=== PATIENT | female | born 1945 | race Caucasian/White ===

== ENCOUNTER 2016-05-01 11:03 | Outpatient (CLI) | payer MEDICARE, OTHER ==
[2014-11-12 12:23] VITALS: BP 172/90
--- NOTE | 2016-05-04 12:37 | OP Clinic Progress Note ---
REFERRING PHYSICIAN: Dr. Elbert Banks REASON FOR VISIT: Iman Lala returns for follow up on her seronegative rheumatoid arthritis of multiple joints. She is doing well. No joint swelling, warmth, tenderness, morning stiffness or pain. No new deformities or associated symptoms. PAST MEDICAL HISTORY: 1. Hypothyroidism. 2. Hypertension. 3. Diverticulitis. PRESENT MEDICATIONS: 1. Metoprolol 50 mg once a day. 2. Levothyroxine 50 mcg daily. 3. Plaquenil 200 mg once a day. 4. Leflunomide 20 mg daily. REVIEW OF SYSTEMS: No fevers, chills, sweats, chest pain, shortness of breath, cough, wheezing, nausea, vomiting, or diarrhea. No numbness or tingling of extremities, skin rashes, or nodules. PHYSICAL EXAMINATION: GENERAL: On exam, she looks well. VITAL SIGNS: BP: 140/80, R: 18, heart rate 88, T: 97.5. Height: 4 feet 11 inches. Weight: 153 pounds. HEENT: Sclerae are anicteric. Conjunctivae are pink. No stomatitis or glossitis. LUNGS: Clear bilaterally with no crackles or wheezing. HEART: Regular rhythm. ABDOMEN: Soft and nontender. VASCULAR: No edema or cyanosis. PERIPHERAL JOINTS: No synovitis at the DIPs, PIPs, MCPs, wrists, elbows, shoulders, hips, knees, ankles, and feet with good range of motion throughout. Note, she does have ulnar deviation at the MCPs. She does have a little thoracic kyphosis but no spinal tenderness. IMPRESSION: Seronegative rheumatoid arthritis, active and stable. PLAN: Continue her regimen. Her last labs from February are reviewed. Her rheumatoid factor was negative. Sedimentation rate was normal. CBC and CMP were unremarkable. We will recheck a CBC and CMP to monitor for drug toxicity. She also needs a fasting lipid profile when she comes back next week for all of her studies. Thank you very much. cc: Dr. Elbert CRAIG
== END 2016-05-01 11:04 ==
LOC: RHEU 11:03
PROVIDERS: ATTEND Internal Medicine
DX: M06.09 Rheumatoid arthritis without rheumatoid factor, multiple sites (principal); Z79.899 Other long term (current) drug therapy
CPT/HCPCS: 99214; G0463

== ENCOUNTER 2016-05-07 09:58 | Outpatient (CLI) | payer MEDICARE, OTHER ==
[2014-11-12 12:23] VITALS: BP 172/90
[2016-05-07 10:20] LABS: BASOPHILS % 0.7 (0.0-1.5); EOSINOPHILS % 3.2 % (0.0-6.8); LYMPHOCYTES # 1.2 # k/uL (0.6-4.0); MEAN CORPUSCULAR HEMOGLOBIN 26.3 pg (28.0-34.0); MONOCYTES # 0.3 # k/uL (0.0-0.9); MONOCYTES % 6.7 % (0.0-11.0); NEUTROPHILS # 2.7 # k/uL (1.4-7.7)
[2016-05-07 10:43] LABS: eGFR (African) > 60; eGFR (Non-African) > 60
== END 2016-05-07 10:00 ==
LOC: LAB 09:58
PROVIDERS: ATTEND Internal Medicine
DX: Z51.81 Encounter for therapeutic drug level monitoring (principal); Z79.899 Other long term (current) drug therapy; M05.79 Rheumatoid arthritis with rheumatoid factor of multiple sites without organ or systems involvement
CPT/HCPCS: 36415; 80053; 80061; 85025; 85651; 86140

== ENCOUNTER 2016-07-31 09:40 | Outpatient (CLI) | payer MEDICARE, OTHER ==
[2014-11-12 12:23] VITALS: BP 172/90
--- NOTE | 2016-08-03 13:15 | OP Clinic Progress Note ---
REASON FOR VISIT: Iman Lala returns for follow up of seronegative rheumatoid arthritis of multiple sites. She is doing well on her present regimen. No joint swelling, warmth, tenderness, morning stiffness or pain. No new deformities and activities of daily living are not limited. PAST MEDICAL HISTORY: 1. Hypothyroidism. 2. Hypertension. 3. Diverticulitis. PRESENT MEDICATIONS: 1. Plaquenil 200 mg once a day. 2. Levothyroxine 50 mcg daily. 3. Metoprolol 50 mg once a day. 4. Leflunomide 20 mg once a day. REVIEW OF SYSTEMS: No fevers, chills, sweats, chest pain, shortness of breath, cough, wheezing, nausea, vomiting, numbness or tingling of extremities. No falls. PHYSICAL EXAMINATION: GENERAL: She looks well. VITAL SIGNS: Height: 4 feet 11 inches. Weight: 157. T: 97.6, R: 18, heart rate of 90, BP: 150/90. HEENT: Sclerae are anicteric. Conjunctivae are pink. No stomatitis or glossitis. LUNGS: Clear bilaterally with no crackles or wheezing. HEART: Regular rhythm. ABDOMEN: Soft and nontender. VASCULAR: No edema or cyanosis. PERIPHERAL JOINTS: No synovitis at the DIPs, PIPs, MCPs, wrists, elbows, shoulders, hips, knees, ankles, and feet. LABORATORY STUDIES: Her labs from May 07, sedimentation rate was 26. Hemoglobin 11.7. Liver functions, AST and ALT are normal at 26 and 25. Note mild hypertriglyceridemia at 271. IMPRESSION AND PLAN: 1. Rheumatoid arthritis, active and stable. 2. High risk drug. No evidence of drug toxicity; however, we will monitor triglycerides while on leflunomide. 3. Hypertriglyceridemia. 4. Anemia, felt to be of chronic disease. Continue to monitor. Thank you very much. Best regards, cc: Dr. Elbert CRAIG
== END 2016-07-31 13:48 ==
LOC: RHEU 09:40
PROVIDERS: ATTEND Internal Medicine
DX: M06.9 Rheumatoid arthritis, unspecified (principal); Z79.899 Other long term (current) drug therapy
CPT/HCPCS: G0463

== ENCOUNTER 2016-08-05 13:30 | Outpatient (CLI) | payer MEDICARE, OTHER ==
[2014-11-12 12:23] VITALS: BP 172/90
[2016-08-05 13:53] LABS: BASOPHILS % 0.8 (0.0-1.5); EOSINOPHILS % 3.7 % (0.0-6.8); MEAN CORPUSCULAR HEMOGLOBIN 24.2 pg (28.0-34.0); MEAN CORPUSCULAR VOLUME 80.4 fl (80.0-100.0); MONOCYTES % 7.1 % (0.0-11.0); NEUTROPHILS # 3.4 # k/uL (1.4-7.7)
[2016-08-05 14:20] LABS: eGFR (African) > 60; eGFR (Non-African) > 60
== END 2016-08-05 13:40 ==
LOC: LAB 13:30
PROVIDERS: ATTEND Internal Medicine
DX: M06.09 Rheumatoid arthritis without rheumatoid factor, multiple sites (principal); Z79.899 Other long term (current) drug therapy
CPT/HCPCS: 36415; 80053; 85025; 85651; 86140

== ENCOUNTER 2016-10-30 09:28 | Outpatient (CLI) | payer MEDICARE, OTHER ==
[2014-11-12 12:23] VITALS: BP 172/90
--- NOTE | 2016-10-30 13:39 | OP Clinic Progress Note ---
REASON FOR VISIT: Iman Lala returns for follow up on her seronegative rheumatoid arthritis of multiple joints. Doing well. She is not having any joint swelling, warmth, tenderness, morning stiffness, or pain. No new deformities and no limitations. PAST MEDICAL HISTORY: 1. Hypothyroidism. 2. Hypertension. 3. Diverticulitis. PRESENT MEDICATIONS: 1. Plaquenil 200 mg once a day. 2. Levothyroxine 50 mcg daily. 3. Metoprolol 50 mg once a day. 4. Leflunomide 20 mg once a day. 5. Tramadol 50 mg 1 tablet twice a day. REVIEW OF SYSTEMS: No fevers, chills, sweats, chest pain, shortness of breath, cough, wheezing, nausea, or vomiting. No numbness or tingling of her extremities. No falls. She is due for a DEXA scan. She did have her eye exam last month and no well of Plaquenil toxicity. PHYSICAL EXAMINATION: GENERAL: On exam, she looks well. VITAL SIGNS: Height: 4 feet 11 inches. Weight: 153. T: 97.5, R: 18, heart rate of 70, BP: 170/80. HEENT: Sclerae are anicteric. Conjunctivae are pink. No stomatitis or glossitis. LUNGS: Clear with no crackles or wheezing. HEART: Regular rhythm. ABDOMEN: Soft and nontender. VASCULAR: No edema or cyanosis. PERIPHERAL JOINTS: No synovitis at the DIPs, PIPs, MCPs, wrists, elbows, shoulders, hips, knees, ankles, and feet. No thoracic kyphosis. No spinal pain. Cervical range of motion is normal. DIAGNOSTIC STUDIES: Her labs from August 05 were reviewed. Hemoglobin was 10.7. Sedimentation rate was 25. CMP was unremarkable. IMPRESSION: 1. Seropositive rheumatoid arthritis. 2. Anemia. We will recheck her labs today. Regarding her anemia, note that her hemoglobin in January of last year was 12.6 and in April it was 11.7, and recently it was 10.7. Consider further investigation. PLAN: Her last bone density was over 4 years ago. We will proceed with a DEXA scan for osteoporosis screening. Thank you very much. cc: Dr. Elbert CRAIG
== END 2016-10-30 09:30 ==
LOC: RHEU 09:28
PROVIDERS: ATTEND Internal Medicine
DX: M05.9 Rheumatoid arthritis with rheumatoid factor, unspecified (principal); D64.9 Anemia, unspecified
CPT/HCPCS: G0463

== ENCOUNTER 2016-11-03 13:17 | Outpatient (CLI) | payer MEDICARE, OTHER ==
[2014-11-12 12:23] VITALS: BP 172/90
[2016-11-03 13:46] LABS: BASOPHILS % 0.8 (0.0-1.5); EOSINOPHILS % 4.3 % (0.0-6.8); MEAN CORPUSCULAR HEMOGLOBIN 24.7 pg (28.0-34.0); MEAN CORPUSCULAR VOLUME 78.6 fl (80.0-100.0); MONOCYTES % 5.6 % (0.0-11.0); NEUTROPHILS # 3.9 # k/uL (1.4-7.7)
[2016-11-03 14:12] LABS: eGFR (African) > 60; eGFR (Non-African) > 60
== END 2016-11-03 13:18 ==
LOC: RAD 13:17
PROVIDERS: ATTEND Internal Medicine
DX: M06.09 Rheumatoid arthritis without rheumatoid factor, multiple sites (principal); Z79.899 Other long term (current) drug therapy
CPT/HCPCS: 36415; 80053; 85025; 85651; 86140

== ENCOUNTER 2016-11-18 13:12 | Outpatient (CLI) | payer MEDICARE, OTHER ==
[2014-11-12 12:23] VITALS: BP 172/90
== END 2016-11-18 13:13 ==
LOC: RAD 13:12
PROVIDERS: ATTEND Internal Medicine
DX: M06.09 Rheumatoid arthritis without rheumatoid factor, multiple sites (principal); Z79.899 Other long term (current) drug therapy
CPT/HCPCS: 77080

== ENCOUNTER 2016-11-19 08:42 | Outpatient (CLI) | payer MEDICARE, OTHER ==
[2014-11-12 12:23] VITALS: BP 172/90
== END 2016-11-19 08:44 ==
LOC: LAB 08:42
PROVIDERS: ATTEND Family Medicine
DX: D50.8 Other iron deficiency anemias (principal)
CPT/HCPCS: 36415; 83540

== ENCOUNTER 2017-02-03 13:33 | Outpatient (CLI) | payer MEDICARE, OTHER ==
[2014-11-12 12:23] VITALS: BP 172/90
[2017-02-03 13:48] LABS: BASOPHILS % 0.8 (0.0-1.5); EOSINOPHILS % 2.9 % (0.0-6.8); MEAN CORPUSCULAR HEMOGLOBIN 27.9 pg (28.0-34.0); MEAN CORPUSCULAR VOLUME 83.8 fl (80.0-100.0); MONOCYTES % 6.5 % (0.0-11.0); NEUTROPHILS # 3.9 # k/uL (1.4-7.7)
[2017-02-03 14:14] LABS: eGFR (African) > 60; eGFR (Non-African) > 60
== END 2017-02-03 13:34 ==
LOC: LAB 13:33
PROVIDERS: ATTEND Internal Medicine
DX: M06.09 Rheumatoid arthritis without rheumatoid factor, multiple sites (principal)
CPT/HCPCS: 36415; 80053; 85025; 85651; 86140

== ENCOUNTER 2017-04-28 14:34 | Outpatient (CLI) | payer MEDICARE, OTHER ==
[2014-11-12 12:23] VITALS: BP 172/90
--- NOTE | 2017-04-30 09:34 | OP Clinic Progress Note ---
REASON FOR VISIT: This 72-year-old lady is seen with "vertigo." She has had this for about 3 months. It began when she came back from a trip to [place]. Frequently, she has some popping and cracking in her ears on descent from airplanes. She does note that the issues regarding imbalance or disequilibrium began after returning from [place] by airplane. She tends to sleep on both the right and left sides and moves around. She flies about 3 times a year and this is the first time the disequilibrium or imbalance or vertigo has seemed to bother her, but she does have popping and cracking in her ears on descent frequently. Her ears get a little muffled. She opens her mouth and yawns, essentially stretching her tensor veli palatini muscle which can help to open up the Eustachian tubes. The patient is in excellent physical health in regard to exercising, running a 5K, and trying to take good care of herself. Both ear canals have a small amount of dry crusted cerumen that is not obstructive and that was removed from both ear canals under the microscope. Both eardrums are clear and clean. There is no perforation. There is no increased redness. However, the malleus of both eardrums are significantly medially retracted. She also has a tender neck more in the suboccipital area and more on the right side. Although her symptoms seem to come on associated with standing up and this may be a very slight change of blood pressure or loss of blood volume circulating to the head. I talked with her about stomping her feet before getting up or flexing her lower legs. In regard to the ears, there is at least a moderate chance that some degree of ear pressure problems in the middle ear cause some increased tension on the vestibular system. Occasionally, I have done a very small myringotomy in the clinic under the microscope and it has improved this. I went over these issues with her. The patient seems to be able to tolerate this very well. She simply wanted to know whether something was exceptionally wrong otologically. PLAN: I have reviewed these findings with her using diagrams and she accepts this. She feels comfortable with returning only a p.r.n. basis. cc: Dr. Elbert CRAIG
== END 2017-04-28 14:40 ==
LOC: ENT 14:34
PROVIDERS: ATTEND Otolaryngology
DX: H81.43 Vertigo of central origin, bilateral (principal)
CPT/HCPCS: G0463

== ENCOUNTER 2017-04-30 09:20 | Outpatient (CLI) | payer MEDICARE, OTHER ==
[2014-11-12 12:23] VITALS: BP 172/90
--- NOTE | 2017-05-05 10:16 | OP Clinic Progress Note ---
REASON FOR VISIT: Iman Lala returns for follow up on her seronegative rheumatoid arthritis. She is doing well. She has a little morning stiffness but not more than 15 minutes. No swelling. No new deformities. No limitations in activities of daily living. Her anemia has resolved. She continues to address her blood pressure with Dr. Banks. Osteopenia. PAST MEDICAL HISTORY: 1. Hypothyroidism. 2. Hypertension. 3. Diverticulitis. 4. Seronegative rheumatoid arthritis. 5. Osteopenia. Actonel treatment x5 years. PRESENT MEDICATIONS: 1. Leflunomide 20 mg daily. 2. Metoprolol 50 mg once a day. 3. Levothyroxine 100 mcg daily. 4. Plaquenil 200 mg once a day. 5. Tramadol 50 mg 1 to 2 tablets twice a day as needed. 6. Omeprazole. REVIEW OF SYSTEMS: Rest of the systems are reviewed. No fevers, chills, sweats, chest pain, shortness of breath, cough, wheezing, nausea, vomiting, or diarrhea. PHYSICAL EXAMINATION: General: She looks well. VITAL SIGNS: Height: 4 feet 10 inches. Weight: 139. T: 97.8, R: 20, heart rate 68, BP: 151/87. HEENT: Sclerae are anicteric. Conjunctivae are pink. No stomatitis or glossitis. LUNGS: Clear bilaterally with no crackles or wheezing. HEART: Regular rhythm. ABDOMEN: Soft and nontender. VASCULAR: No edema or cyanosis. PERIPHERAL JOINTS: Hard bony swelling at the DIPs, otherwise, the PIPs, MCPs, wrists, elbows, shoulders, hips, knees, ankles, and feet show no synovitis and good range of motion throughout. IMPRESSION: 1. Seronegative rheumatoid arthritis of multiple sites. Doing well. 2. Osteopenia, stable. 3. Iron deficiency anemia, resolved. Her last hemoglobin was on February 03 and it was 14.2, hematocrit 42.7. 4. Chronic pain, stable. PLAN: 1. Check labs today for disease activity and drug toxicity. 2. I refilled her tramadol 1 to 2 tablets twice a day as needed. Dispense # 120 tablets. 3. Note, we will repeat her DEXA scan sometime in 2019. 4. Continue calcium with vitamin D. Thank you very much. cc: Dr. Elbert CRAIG
== END 2017-04-30 13:26 ==
LOC: RHEU 09:20
PROVIDERS: ATTEND Internal Medicine
DX: M06.89 Other specified rheumatoid arthritis, multiple sites (principal); M85.80 Other specified disorders of bone density and structure, unspecified site; R52 Pain, unspecified
CPT/HCPCS: 99214; G0463

== ENCOUNTER 2017-05-04 13:16 | Outpatient (CLI) | payer MEDICARE, OTHER ==
[2014-11-12 12:23] VITALS: BP 172/90
[2017-05-04 13:33] LABS: BASOPHILS % 0.5 (0.0-1.5); EOSINOPHILS % 2.8 % (0.0-6.8); MEAN CORPUSCULAR HEMOGLOBIN 28.5 pg (28.0-34.0); MEAN CORPUSCULAR VOLUME 87.6 fl (80.0-100.0); MONOCYTES % 5.7 % (0.0-11.0)
[2017-05-04 14:06] LABS: eGFR (African) > 60; eGFR (Non-African) > 60
== END 2017-05-04 13:18 ==
LOC: LAB 13:16
PROVIDERS: ATTEND Internal Medicine
DX: M06.09 Rheumatoid arthritis without rheumatoid factor, multiple sites (principal); Z79.899 Other long term (current) drug therapy
CPT/HCPCS: 36415; 80053; 85025; 85651

== ENCOUNTER 2017-07-30 09:19 | Outpatient (CLI) | payer MEDICARE, OTHER ==
[2014-11-12 12:23] VITALS: BP 172/90
--- NOTE | 2017-07-30 10:41 | OP Clinic Progress Note ---
REASON FOR VISIT: Iman Lala returns for follow up of seronegative rheumatoid arthritis of multiple sites. From that point of view, she is doing well. She has no joint swelling, pain, no new deformities, and no limitations in activities. Since I last saw her, she underwent hernia repair x3. This happened 10 days ago. Labs were done. She is feeling significantly better. PAST MEDICAL HISTORY: 1. Anemia. 2. Osteopenia. 3. Hypothyroidism. 4. Hypertension. 5. Diverticulitis. 6. Seronegative RA. 7. Status post hernia repair. PRESENT MEDICATIONS: 1. Leflunomide 20 mg daily. 2. Metoprolol 50 mg once a day. 3. Levothyroxine 100 mcg daily. 4. Plaquenil 200 mg once a day. 5. Tramadol 50 mg 2 tablets twice a day as needed for pain. 6. Omeprazole. REVIEW OF SYSTEMS: No fevers, chills, sweats, chest pain, shortness of breath, cough, wheezing, nausea, vomiting, or diarrhea. No numbness or tingling of extremities. No new deformities. PHYSICAL EXAMINATION: VITAL SIGNS: Height: 4 feet 11 inches. Weight: 134 pounds. T: 98.2, R: 20 , Heart rate: 79, BP: 140/80. HEENT: Sclerae are anicteric. Conjunctivae are pink. No stomatitis or glossitis. LUNGS: Clear with no crackles, wheezing, or rubs. HEART: Regular rate and rhythm. Normal S1 and S2. ABDOMEN: Soft and nontender. VASCULAR: No edema or cyanosis. PERIPHERAL JOINTS: No synovitis at the DIPs, PIPs, MCPs, wrists, elbows, shoulders, hips, knees, ankles, and feet LABORATORY: Her last sedimentation rate on May 04 was 28, down from 76 in 2016. CBC was normal with a hemoglobin of 13.5. CMP was normal. IMPRESSION: 1. Seronegative rheumatoid arthritis of multiple sites, in remission. 2. Osteopenia, stable. 3. Chronic pain, stable. PLAN: 1. No need for labs today. 2. I refilled her tramadol. 3. She will be due for a DEXA Scan in 2019. 4. Continue calcium with vitamin D. Thank you very much. cc: Dr. Elbert CRAIG
== END 2017-07-30 12:20 ==
LOC: RHEU 09:19
PROVIDERS: ATTEND Internal Medicine
DX: M06.89 Other specified rheumatoid arthritis, multiple sites (principal); M85.80 Other specified disorders of bone density and structure, unspecified site; G89.29 Other chronic pain
CPT/HCPCS: 99214; G0463

== ENCOUNTER 2017-11-05 09:13 | Outpatient (CLI) | payer MEDICARE, OTHER ==
[2014-11-12 12:23] VITALS: BP 172/90
--- NOTE | 2017-11-05 10:30 | OP Clinic Progress Note ---
REASON FOR VISIT: Iman Lala returns for follow up of seronegative rheumatoid arthritis of multiple sites. She is doing well with no joint swelling, warmth, tenderness, morning stiffness, or pain. No limitations of activities. PAST MEDICAL AND SURGICAL HISTORY: 1. Anemia. 2. Osteopenia. 3. Hypothyroidism. 4. Hypertension. 5. Diverticulitis. 6. Seronegative rheumatoid arthritis. 7. Bilateral inguinal hernia repair. PRESENT MEDICATIONS: 1. Leflunomide 20 mg daily. 2. Metoprolol 50 mg once a day. 3. Levothyroxine 100 mcg daily. 4. Plaquenil 200 mg once a day. 5. Tramadol 50 mg 2 tablets every 6 hours p.r.n. pain. 6. Omeprazole. REVIEW OF SYSTEMS: No fevers, chills, sweats, chest pain, shortness of breath, cough, wheezing, nausea, vomiting, or diarrhea. PHYSICAL EXAMINATION: GENERAL: She looks well. VITAL SIGNS: Height: 4 feet 11 inches. Weight: 134. R: 20, heart rate 79, BP: 139/84. HEENT: Sclerae are anicteric. Conjunctivae are pink. No stomatitis or glossitis. LUNGS: Clear bilaterally with no crackles or wheezing. HEART: Regular rate and rhythm. ABDOMEN: Soft and nontender. VASCULAR: No edema or cyanosis. PERIPHERAL JOINTS: No synovitis at the DIPs, PIPs, MCPs, wrists, elbows, shoulders, hips, knees, ankles, and feet. ASSESSMENT: Seronegative rheumatoid arthritis. PLAN: No changes. Return to clinic in 3 months. Thank you very much. cc: Dr. Elbert CRAIG
== END 2017-11-05 09:14 ==
LOC: RHEU 09:13
PROVIDERS: ATTEND Internal Medicine
DX: M05.9 Rheumatoid arthritis with rheumatoid factor, unspecified (principal)
CPT/HCPCS: 99213; G0463

== ENCOUNTER 2017-11-08 14:20 | Outpatient (CLI) | payer MEDICARE, OTHER ==
[2014-11-12 12:23] VITALS: BP 172/90
[2017-11-08 15:42] LABS: eGFR (Non-African) > 60
[2017-11-08 22:50] LABS: BASO % 0.6 % (0.0-1.5); EOS % 3.1 % (0.0-6.8); LYMPH ABS # 1.78 thou/uL (0.60-4.00); MCH. 29.6 pg (28.0-34.0); MCV 88.5 fL (80.0-100.0); MONOCYTE % 7.1 % (0.0-11.0); MONOCYTE ABS # 0.43 thou/uL (0.00-0.90); PLATELET COUNT 289 thou/uL (130-400)
== END 2017-11-08 14:23 ==
LOC: LAB 14:20
PROVIDERS: ATTEND Internal Medicine
DX: M06.09 Rheumatoid arthritis without rheumatoid factor, multiple sites (principal); Z79.899 Other long term (current) drug therapy
CPT/HCPCS: 36415; 80053; 85025; 85651

== ENCOUNTER 2017-11-09 13:23 | Outpatient (CLI) | payer MEDICARE, OTHER ==
[2014-11-12 12:23] VITALS: BP 172/90
--- NOTE | 2017-11-09 15:04 | Diagnostic Imaging Report ---
JOSE WORKMAN [facility] [address] [facility].[address] [address] Report Submission Date: Nov 09, 2017 2:49:33 PM CDT Patient Study Name: HANSEL PARHAM Date: Nov 09, 2017 1:44:12 PM CDT Modality Type: DX Gender: F Description: SPINE : 43 Institution: [facility] Physician: JOSE WORKMAN Lumbar spine History: Chronic back pain AP, lateral and bilateral oblique projections of the lumbar spine demonstrate mild rightward curvature. There is severe multilevel facet arthropathy. Secondary to facet arthropathy, there is grade 1 anterolisthesis of L4 relative to L5 measured at 1.2 cm. There is also severe disc space narrowing at this level. There is mild superior endplate compression at L1, probably chronic with approximately 20% loss of vertebral body height. Impression: Grade 1, nearing grade 2, anterolisthesis of L4 upon L5 secondary to severe facet arthropathy. There is additionally severe disc space narrowing at this level. Severe multilevel facet arthropathy. Mild, probably chronic superior endplate compression of L1 with an estimated 20% loss of vertebral body height. Electronically signed on Nov 09, 2017 2:49:33 PM CDT by: Jodie CRAIG
--- NOTE | 2017-11-09 15:06 | Diagnostic Imaging Report ---
JOSE WORKMAN [facility] [address] [facility].[address] [address] Report Submission Date: Nov 09, 2017 2:55:03 PM CDT Patient Study Name: HANSEL PARHAM Date: Nov 09, 2017 1:46:00 PM CDT Modality Type: DX Gender: F Description: SPINE : 43 Institution: [facility] Physician: JOSE WORKMAN Thoracic spine History: Chronic back pain AP, lateral and swimmer's views of the thoracic spine were obtained which demonstrate multilevel anterior marginal osteophytes consistent with diffuse idiopathic skeletal hyperostosis. There is mild multilevel disc space narrowing. There is mild anterior wedging at several levels of the mid thoracic spine resulting in kyphosis but there is no significant overall loss of vertebral body height. Impression: Findings consistent with diffuse idiopathic skeletal hyperostosis. Mild anterior wedging of several midthoracic vertebral bodies and multilevel mild disc space narrowing resulting in kyphosis. Electronically signed on Nov 09, 2017 2:55:03 PM CDT by: Jodie CRAIG
== END 2017-11-09 13:24 ==
LOC: RAD 13:23
PROVIDERS: ATTEND Family Medicine Sports Medicine
DX: M54.5 Low back pain (principal); M54.6 Pain in thoracic spine
CPT/HCPCS: 72072; 72110

== ENCOUNTER 2018-02-04 09:21 | Outpatient (CLI) | payer MEDICARE, OTHER ==
[2014-11-12 12:23] VITALS: BP 172/90
--- NOTE | 2018-02-16 09:43 | OP Clinic Progress Note ---
REASON FOR VISIT: Iman Lala returns for follow up of seronegative rheumatoid arthritis. From that point, she is doing well with no joint swelling, warmth, tenderness, morning stiffness or pain. She has had some thoracic back pain. She had some x-rays done and the report suggests diffuse idiopathic skeletal hyperostosis. Her last bone density was in 2014 and it needs to be repeated. She was osteopenic of the lumbar spine and hip. Otherwise, no new medical problems. No changes in medications. REVIEW OF SYSTEMS: No fevers, chills, sweats, chest pain, shortness of breath, cough, or wheezing. PHYSICAL EXAMINATION: VITAL SIGNS: BP: 150/90, P: 77, R: 18, T: 97.8. Pain is 4 over 10. HEENT: Grossly unremarkable. LUNGS: Clear. HEART: Regular rate and rhythm. PERIPHERAL JOINTS: No synovitis at the DIPs, PIPs, MCPs, wrists, elbows, shoulders, hips, knees, ankles, and feet. IMPRESSION: Seronegative rheumatoid arthritis, active and stable. PLAN: 1. She will be seeing her primary care physician in the near future and labs will be done at that time. 2. Otherwise, I will see her back in 3 months. We will make arrangements for bone density testing at that time. cc: Dr. Elbert CRAIG
== END 2018-02-04 09:28 ==
LOC: RHEU 09:21
PROVIDERS: ATTEND Internal Medicine
DX: M06.00 Rheumatoid arthritis without rheumatoid factor, unspecified site (principal); M54.6 Pain in thoracic spine
CPT/HCPCS: 99212; G0463

== ENCOUNTER 2018-03-30 10:45 | Outpatient (CLI) | payer MEDICARE, OTHER ==
[2014-11-12 12:23] VITALS: BP 172/90
[2018-03-30 11:17] LABS: MEAN CORPUSCULAR HEMOGLOBIN 29.1 pg (28.0-34.0)
[2018-03-30 11:18] LABS: BASOPHILS % 0.5 (0.0-1.5); EOSINOPHILS % 3.2 % (0.0-6.8); MONOCYTES % 7.2 % (0.0-11.0); NEUTROPHILS # 3.1 # k/uL (1.4-7.7)
[2018-03-30 11:31] LABS: eGFR (Non-African) > 60
== END 2018-03-30 10:46 ==
LOC: LAB 10:45
PROVIDERS: ATTEND Family Medicine
DX: I10 Essential (primary) hypertension (principal); E03.9 Hypothyroidism, unspecified
CPT/HCPCS: 36415; 80053; 80061; 84443; 85025

== ENCOUNTER 2018-10-28 10:44 | Outpatient (CLI) | payer MEDICARE, OTHER ==
[2014-11-12 12:23] VITALS: BP 172/90
[2018-10-28 11:15] LABS: APPEARANCE,URINE CLEAR (CLEAR); COLOR,URINE YELLOW (YELLOW)
[2018-10-28 11:16] LABS: OCCULT BLOOD,URINE TRACE-INTACT (NEGATIVE); UROBILINOGEN URINE 0.2 Eu (0.2-1.0)
[2018-10-28 11:26] LABS: BASOPHILS % 0.6 % (0.0-1.5); NEUTROPHILS # 3.6 # k/uL (1.4-7.7)
[2018-10-28 11:31] LABS: HDL 42 mg/dL (>40); eGFR (Non-African) > 60
== END 2018-10-28 10:46 ==
LOC: LAB 10:44
PROVIDERS: ATTEND Family Medicine
DX: E78.1 Pure hyperglyceridemia (principal); I10 Essential (primary) hypertension; R10.9 Unspecified abdominal pain
CPT/HCPCS: 36415; 80053; 80061; 81002; 85025

== ENCOUNTER 2018-12-19 09:46 | Day surgery (SDC) | payer MEDICARE, OTHER ==
[2014-11-12 12:23] VITALS: BP 172/90
[~2018-12-19 09:46] MED LIST: LACTATED RINGERS 1,000 ML IV.SOLN IV ONE; LIDOCAINE HCL 2% PF 100MG/5ML VIAL IJ ONE; PROPOFOL 200 MG/20 ML VIAL IV ONE
--- NOTE | 2018-12-21 16:11 | GI Report ---
DATE OF PROCEDURE (COLONOSCOPY): 12/19/2018 REFERRING PHYSICIAN: Dr. Banks. PROCEDURE PERFORMED: Colonoscopy. SURGEON: Ailyn Velasquez M.D., Pierre. INDICATION FOR PROCEDURE: The patient has had a sigmoid resection in the past. She has had recent change in bowel habits. She is referred for evaluation because of that. PROCEDURE MEDICATION: Propofol, as per Anesthesia. DESCRIPTION OF PROCEDURE: An Olympus video colonoscope was advanced to the rectum. The prep was really poor, she didnt take her prep this morning. There still was some residual stool. There is anastomosis in the sigmoid. The colonoscope was advanced to the cecum but there is stool coating the wall. There is no obvious obstructive process, no obvious big polyps though small polyps easily could be missed. Again, the cecum, ascending colon, transverse colon no obvious obstructive process but stool coated the wall. Descending colon: Some diverticula. There is anastomosis at the rectosigmoid junction, a lot of stool there but no obvious obstruction. FINDINGS/RECOMMENDATIONS: Again, would increase fiber in the diet like Benefiber, Metamucil or MiraLAX if needed. I dont see any obvious obstructive process. If she is ever scheduled for a colonoscopy in the future she needs to be on a 2-day prep or at least take it the morning of the procedure. Consider relook at her colon in 5-10 years if clinically indicated. AILYN VELASQUEZ M.D., F.A.CColtP. Ann Job#: [id number] Cc: Dr. Darren CRAIG
--- NOTE | 2018-12-21 16:14 | GI Report ---
DATE OF PROCEDURE (ENDOSCOPY): 12/19/2018 REFERRING PHYSICIAN: Dr. Banks. PROCEDURE PERFORMED: Endoscopy SURGEON: Ailyn Velasquez M.D., Deepali INDICATION FOR PROCEDURE: The patient has a history of a large hiatal hernia and is having difficulty swallowing pills and food. She has been slowly losing weight. She does note tat cold liquids make it worse for swallowing. PROCEDURE MEDICATION: Propofol, as per Anesthesia. DESCRIPTION OF PROCEDURE: An Olympus video endoscope was passed through the esophagus under direct visualization. She has a short esophagus. The GE junction is only at about 30 cm from the incisors and tortuous, then one enters a huge hiatal hernia. It appears that almost two-thirds of the stomach is above the diaphragm. One actually had to maneuver to get through the diaphragm to get down into the antrum and eventually the pylorus and duodenal bulb. She does have mild gastritis. There is bile present. She does have some distal esophagitis but there is no stricture that needed to be dilated. In addition, she seems to have some type of a platelet disorder, even putting her IV in she tended to get a hematoma and bleed easily. The patient tolerated the procedure well. FINDINGS: 1. Huge hiatal hernia; about two-thirds of the stomach is in the chest. 2. She does have esophagitis. 3. Bile gastritis. RECOMMENDATIONS: Again, short of surgery, sleep with her bed elevated at least at a 15-30 degree angle, not eat late at night. I would always take an antacid like Gaviscon at bedtime, take a PPI once a day before the first meal. Weight loss. Continued slow weight loss would be beneficial. Again, most patients with a hernia this size would benefit from surgery though there obviously is a risk/benefit and obviously a risk to surgery in someone 73 years old but this is a huge hernia and her dysphagia probably will not improve as long as she remains with this large of a hernia. AILYN VELASQUEZ M.D., Carrie.Rosio.CColtP. JOSE DE JESUS/sheila Job#: [id number] Cc: Dr. Banks [facility]ITAL[facility]vonne
== END 2018-12-19 11:45 ==
LOC: OPSURG 09:46
PROVIDERS: ATTEND Internal Medicine Gastroenterology
DX: R13.10 Dysphagia, unspecified (principal); R19.4 Change in bowel habit; K57.30 Diverticulosis of large intestine without perforation or abscess without bleeding; K44.9 Diaphragmatic hernia without obstruction or gangrene; K20.9 Esophagitis, unspecified; K29.60 Other gastritis without bleeding; Z98.0 Intestinal bypass and anastomosis status; Z90.49 Acquired absence of other specified parts of digestive tract
CPT/HCPCS: 43235; 45378; J2001; J2704; J7120